=== PATIENT | female | born 1985 | race American Indian/Alaskan Native ===

== ENCOUNTER 2016-11-28 19:01 | Emergency (ER) | payer MEDICAID ==
[2016-11-28] MEDS ORDERED: ZOFRAN IV ONE (19:58)
[2016-11-28] MEDS ORDERED: TORADOL IV ONE (19:58)
[2016-11-28 20:20] LABS: Hematocrit 42.5 % (30.3-42.9); Hemoglobin 14.5 gm/dl (10.1-14.3); Mean Corpuscular HGB Conc 34 % (30-34); Mean Corpuscular Hemoglobin 33 pg (28-32); Mean Corpuscular Volume 98 fl (79-97); Platelet Count 165 K/mm3 (140-440); Red Blood Count 4.34 M/mm3 (3.65-5.03); Red Cell Distribution Width 13.2 % (13.2-15.2); White Blood Count 6.9 K/mm3 (4.5-11.0)
[2016-11-28 20:31] LABS: Bilirubin,Urine NEG (Negative); Blood,Urine NEG (Negative); Ketones,Urine NEG (Negative); Leukocyte Esterase,Urine NEG (Negative); Mucus,Urine 3+ /HPF; Nitrite,Urine NEG (Negative); Urobilinogen,Urine < 2.0 mg/dL (<2.0); WBC,Urine < 1.0 /HPF (0.0-6.0)
[2016-11-28 20:40] LABS: Anion Gap 19 mmol/L; BUN/Creatinine Ratio 11.11; Blood Urea Nitrogen 10 mg/dL (7-17); Calcium 9.6 mg/dL (8.4-10.2); Carbon Dioxide 27 mmol/L (22-30); Chloride 100.6 mmol/L (98-107); Glucose 85 mg/dL (65-100); Potassium 4.3 mmol/L (3.6-5.0); Sodium 142 mmol/L (137-145)
[2016-11-28 21:19] LABS: Anisocytosis 1+; Basophils % (Manual) 0 % (0.0-1.8); Blastocytes % (Manual) 0 %
[2016-11-28 21:20] LABS: Diff Status Complete; Platelet Estimate Consistent w Auto
--- NOTE | 2016-11-28 22:27 | Cat Scan Report ---
FINAL REPORT PROCEDURE: CT ABDOMEN PELVIS WO CON TECHNIQUE: Computerized axial tomography of the abdomen and pelvis was performed without intravenous contrast. This study is performed without intravascular contrast material and its sensitivity for abdominal and pelvic pathology, including neoplasms, inflammation, abscess, free fluid, thrombosis, arterial dissection and infarction, is reduced compared with a contrast enhanced study. HISTORY: flank pain R COMPARISON: No prior studies are available for comparison. FINDINGS: Visualized lower thorax: No significant abnormality. Liver: Normal size and attenuation. Spleen: Normal size and attenuation. Gallbladder and biliary system: Normal. Pancreas: Normal. Adrenals: Normal. Kidneys: Both kidneys have normal size. No hydronephrosis. No renal masses or stones.. GI tract: Stomach is normal. The small bowel has a normal caliber. No obstruction, ileus or enteritis. The cecum, appendix and colon are normal.. Lymph nodes and mesentery: Normal. Vasculature: Normal. Bladder: There is some thickening of the urinary bladder wall, cystitis is possible.. Reproductive organs: No pelvic masses. Peritoneum: No free fluid. Musculoskeletal structures: No significant abnormality. Other: None. IMPRESSION: There is no evidence of intestinal or urinary tract obstruction. No ileus or enteritis. The appendix is normal. Thickening of the urinary bladder wall may represent cystitis..
[2016-11-29] MEDS ORDERED: MORPHINE IV ONE (00:34)
[2016-11-29] MEDS ORDERED: MACROBID PO ONE (00:34)
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
[2016-11-29 01:55] VITALS: BP 130/72
== END 2016-11-29 02:05 | disposition home or self-care (01) ==
LOC: ED 19:01
DX: R10.9 Unspecified abdominal pain (principal); G43.909 Migraine, unspecified, not intractable, without status migrainosus; J45.909 Unspecified asthma, uncomplicated; F17.200 Nicotine dependence, unspecified, uncomplicated
CPT/HCPCS: 36415; 74176; 80048; 81001; 85007; 85025; 87086; 96374; 96375; 99284; J1885; J2270; J2405

== ENCOUNTER 2017-08-05 22:01 | Emergency (ER) | payer OTHER, MEDICAID ==
[2017-08-06 04:22] VITALS: BP 92/51
[2017-08-06] MEDS ORDERED: ZOFRAN ODT PO ONE (04:42)
[2017-08-06] MEDS ORDERED: NORCO 5/325 PO ONE (04:42)
--- NOTE | 2017-08-06 05:08 | XRay Report ---
FINAL REPORT EXAM: XR ANKLE 3+V RT HISTORY: right ankle pain COMPARISONS: None. FINDINGS: Three views right ankle The ankle mortise is intact. Os trigonum is noted. Tibiotalar joint is unremarkable. Diffuse osteopenia. There is flattening and sclerosis of the navicular bone. Cuboid and 5th metatarsal base appear hypertrophic. IMPRESSION: Flattening and sclerosis of the navicular bone may be secondary to avascular necrosis or chronic sequela of prior fracture. A superimposed acute fracture is a possibility. Consider CT/MRI follow-up as warranted. Diffuse demineralization may be secondary to disuse. Possible old hypertrophic fracture deformities are demonstrated at the cuboid and 5th metatarsal bases. Correlation for history of prior injury is requested.
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
== END 2017-08-06 07:06 | disposition home or self-care (01) ==
LOC: ED 22:01
DX: S99.911A Unspecified injury of right ankle, initial encounter (principal); G43.909 Migraine, unspecified, not intractable, without status migrainosus; J45.909 Unspecified asthma, uncomplicated; F17.200 Nicotine dependence, unspecified, uncomplicated; X50.9XXA Other and unspecified overexertion or strenuous movements or postures, initial encounter; Y93.89 Activity, other specified; Y92.89 Other specified places as the place of occurrence of the external cause; Y99.8 Other external cause status
CPT/HCPCS: Q0162

== ENCOUNTER 2017-12-06 16:49 | Emergency (ER) | payer MEDICAID, OTHER ==
[2017-12-06 17:00] VITALS: BP 117/74
[2017-12-06] MEDS ORDERED: MOTRIN PO ONE (17:59)
--- NOTE | 2017-12-06 18:00 | Emergency Department Report ---
Blank Doc - Documentation Documentation: Patient is a 32-year-old [place] female who's complaining of chest pain shortness of breath. Patient states as a sharp pain is worse when she takes a deep breath. Patient states the symptoms center of her chest. Patient denies any recent cough, congestion. Patient states has been no fever. Patient denies any recent travel or control. Patient does smoke. Patient will be moved to fast track area for chest x-ray EK patient also had a d -dimer. G.
--- NOTE | 2017-12-06 19:50 | XRay Report ---
FINAL REPORT PROCEDURE: Chest. TECHNIQUE: PA and lateral views. HISTORY: Pleuritic chest pain. COMPARISON: No prior studies are available for comparison. FINDINGS: The heart and mediastinum appear normal. The lungs are clear and well expanded. There are no pleural effusions. The soft tissues and regional skeleton are unremarkable. There is a mild thoracic scoliosis. Bilateral nipple piercings are noted. IMPRESSION: No evidence of acute cardiopulmonary disease.
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
== END 2017-12-06 20:40 | disposition home or self-care (01) ==
LOC: ED 16:49
DX: M94.0 Chondrocostal junction syndrome [Tietze] (principal); R07.89 Other chest pain; F41.9 Anxiety disorder, unspecified; F17.200 Nicotine dependence, unspecified, uncomplicated; Z90.711 Acquired absence of uterus with remaining cervical stump; Z91.040 Latex allergy status
CPT/HCPCS: 36415; 71046; 85379; 93005; 93010

== ENCOUNTER 2019-02-05 13:35 | Emergency (ER) | payer MEDICAID, OTHER ==
--- NOTE | 2019-02-05 14:33 | Emergency Department Report ---
Blank Doc - Documentation Documentation: This is a 33-year-old female that presents with URI symptoms. This initial assessment/diagnostic orders/clinical plan/treatment(s) is/are subject to change based on patient's health status, clinical progression and re- assessment by fellow clinical providers in the ED. Further treatment and workup at subsequent clinical providers discretion. Patient/guardians urged not to elope from the ED as their condition may be serious if not clinically assessed and managed. Initial orders include: 1- Patient sent to [facility] for further evaluation and treatment 2- CXR
[2019-02-05 14:37] VITALS: BP 105/74
--- NOTE | 2019-02-05 16:04 | XRay Report ---
CHEST 2 VIEWS INDICATION / CLINICAL INFORMATION: cough. COMPARISON: 12/06/17 FINDINGS: SUPPORT DEVICES: None. HEART / MEDIASTINUM: No significant abnormality. LUNGS / PLEURA: No significant pulmonary or pleural abnormality. No pneumothorax. ADDITIONAL FINDINGS: No significant additional findings. IMPRESSION: 1. No acute findings. No significant change. Signer Name: Rox Littlejohn MD Signed: 02/05/2019 3:59 PM Workstation Name: [id number]
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
== END 2019-02-05 16:55 | disposition home or self-care (01) ==
LOC: ED 13:35
DX: J30.9 Allergic rhinitis, unspecified (principal); G43.909 Migraine, unspecified, not intractable, without status migrainosus; F32.9 Major depressive disorder, single episode, unspecified; F41.0 Panic disorder [episodic paroxysmal anxiety]; D25.9 Leiomyoma of uterus, unspecified; F17.200 Nicotine dependence, unspecified, uncomplicated; Z90.710 Acquired absence of both cervix and uterus; Z79.899 Other long term (current) drug therapy; Z91.040 Latex allergy status
CPT/HCPCS: 71046

== ENCOUNTER 2019-09-26 08:50 | Outpatient (CLI) | payer MEDICAID ==
--- NOTE | 2019-09-26 11:33 | Magnetic Resonance Report ---
BILATERAL BREAST MR WITHOUT AND WITH GADOLINIUM INDICATION: 34-year-old with bilateral milky nipple discharge. COMPARISONS: None. TECHNIQUE: Axial 1.0 mm T1 without, axial high-resolution 2.0 mm T2 and axial 1.0 mm dynamic vibrant high-resolution postcontrast T1 fat saturation sequences on a 1.5 Rosaline magnet. The examination was p erformed with an 8-channel dedicated Sentinelle breast coil. Post-processing with CAD and subtraction was performed on an Elysia workstation. 12.0 cc of MultiHance was injected without incident for the c ontrast portion of the exam. Consent was obtained prior to the administration of the contrast. FINDINGS: RIGHT BREAST: Minimal background parenchymal enhancement. No mass or suspicious enhancement. No suspi cious lymph nodes. LEFT BREAST: Minimal background parenchymal enhancement. No mass or suspicious enhancement. No suspic ious lymph nodes. IMPRESSION: Negative study. Recommend clinical follow-up and routine mammographic screening based on ACS guidelines. BI-RADS Category 1: Negative. A normal MRI does not exclude the presence of some forms of breast malignancy as literature reports s uggest that some forms of ductal carcinoma in situ or lobular carcinoma, particularly, may not be det ected on MRI. The sensitivity and specificity of MRI for cancers under 5 mm may be reduced. MRI does not replace the recommendation for annual conventional mammographic evaluation and should be used as an adjunct to mammography and physical examination as necessary. Signer Name: Kvng Macario MD Signed: 09/26/2019 11:29 AM Workstation Name: [id number]
== END 2019-09-26 08:51 | disposition home or self-care (01) ==
LOC: SPVIMAG 08:50
PROVIDERS: ATTEND Surgery
DX: N64.52 Nipple discharge (principal)
CPT/HCPCS: A9577; C8908; 77049

== ENCOUNTER 2021-04-17 06:40 | Emergency (ER) | payer MEDICAID ==
[2021-04-17 07:20] VITALS: BP 103/70
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
== END 2021-04-17 09:20 | disposition home or self-care (01) ==
LOC: ED 06:40
DX: T76.21XA Adult sexual abuse, suspected, initial encounter (principal); G43.909 Migraine, unspecified, not intractable, without status migrainosus; F32.9 Major depressive disorder, single episode, unspecified; F41.9 Anxiety disorder, unspecified; F41.0 Panic disorder [episodic paroxysmal anxiety]; J45.909 Unspecified asthma, uncomplicated; D21.9 Benign neoplasm of connective and other soft tissue, unspecified; Z90.711 Acquired absence of uterus with remaining cervical stump; Z98.890 Other specified postprocedural states; F17.200 Nicotine dependence, unspecified, uncomplicated
CPT/HCPCS: 99282

== ENCOUNTER 2021-09-10 15:12 | Emergency (ER) | payer MEDICAID ==
[2021-09-10 15:40] VITALS: BP 103/68
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
== END 2021-09-10 17:02 | disposition home or self-care (01) ==
LOC: ED 15:12
DX: N61.0 Mastitis without abscess (principal); G43.909 Migraine, unspecified, not intractable, without status migrainosus; F32.9 Major depressive disorder, single episode, unspecified; J45.909 Unspecified asthma, uncomplicated; F41.9 Anxiety disorder, unspecified; F17.200 Nicotine dependence, unspecified, uncomplicated; Z90.710 Acquired absence of both cervix and uterus; Z91.040 Latex allergy status; Z79.899 Other long term (current) drug therapy
CPT/HCPCS: 87116; 99283

== ENCOUNTER 2022-02-22 12:51 | Emergency (ER) | payer MEDICAID ==
[2022-02-23 00:46] VITALS: BP 113/78
[2022-02-23] MEDS ORDERED: HYDROcodone/ACETAMINOPHEN 5-325 MG TAB PO STA (02:32)
--- NOTE | 2022-02-23 03:15 | XRay Report ---
CHEST 2 VIEWS INDICATION / CLINICAL INFORMATION: CP. FINDINGS: SUPPORT DEVICES: None. HEART / MEDIASTINUM: No significant abnormality. LUNGS / PLEURA: No significant pulmonary or pleural abnormality. No pneumothorax. ADDITIONAL FINDINGS: No significant additional findings. IMPRESSION: 1. No acute findings. Signer Name: Sudarshan Iqbal MD Signed: 02/23/2022 3:11 AM Workstation Name: [id number]
--- NOTE | 2022-02-23 03:15 | XRay Report ---
Lumbar spine 3 views INDICATION: Low back pain after injury IMPRESSION: No fracture or subluxation is identified. Signer Name: Sudarshan Iqbal MD Signed: 02/23/2022 3:11 AM Workstation Name: [employer]
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
--- NOTE | 2022-02-26 10:12 | Electrocardiograph Report ---
[facility] Test Date: 2022-02-22 Test Time: 14:04:05 Pat Name: JACOB EMERY Department: Room: Gender: F [employer]: DIXIE : 1985 Requested By: KAYLEIGH ANTHONY Order Number: [id number] Reading MD: Kyle Hendrix Measurements Intervals [place] Rate: 81 P: 67 MT: 118 QRS: 67 QRSD: 67 T: 51 QT: 348 QTc: 403 Interpretive Statements Sinus rhythm No previous ECG available for comparison Electronically Signed On 02-26-2022 10:11:56 EDT by Kyle Hendrix
== END 2022-02-23 05:50 | disposition home or self-care (01) ==
LOC: ED 12:51
DX: R07.9 Chest pain, unspecified (principal); G43.909 Migraine, unspecified, not intractable, without status migrainosus; F32.A Depression, unspecified; J45.909 Unspecified asthma, uncomplicated; F17.200 Nicotine dependence, unspecified, uncomplicated; Z91.09 Other allergy status, other than to drugs and biological substances; Z79.899 Other long term (current) drug therapy
CPT/HCPCS: 71046; 72100; 93005; 99283